=== PATIENT | male | born 2000 | race Caucasian/White ===

== ENCOUNTER → 2023-04-07 15:03 | Outpatient (CLI) | payer SELFPAY ==
--- NOTE | 2023-04-07 15:06 | DI.RAD.S_ITS ---
PROCEDURE: XR ANKLE RT MIN 3V INDICATIONS: right ankle pain TECHNIQUE: 3 views of the ankle were acquired. COMPARISON: None. FINDINGS: Bones: No fractures or dislocations. Ankle mortise is normally aligned. No suspicious bony lesions. Soft tissues: Moderate-sized tibiotalar joint effusion. Achilles tendon appears normal. Lateral periarticular soft tissue swelling. IMPRESSION: 1. No visible fracture. 2. Soft tissue swelling and joint effusion suggests ankle sprain. Dictated by: No Disla M.D. on 04/07/2023 at 16:21 Approved by: No Disla M.D. on 04/07/2023 at 16:22
--- NOTE | 2023-04-07 15:06 | DI.RAD.S_ITS ---
PROCEDURE: XR FINGER RT MIN 2V INDICATIONS: right finger pain TECHNIQUE: AP hand, 2 views of the 3rd and 4th finger(s) acquired. COMPARISON: None. FINDINGS: Bones: No fractures or dislocations. No suspicious bony lesions. Soft tissues: No suspicious soft tissue calcifications. IMPRESSION: No bony abnormality. Dictated by: No Disla M.D. on 04/07/2023 at 16:22 Approved by: No Disla M.D. on 04/07/2023 at 16:22
== END ==
PROVIDERS: Referring Provider Physician Assistant; Visit Provider Physician Assistant
DX: M25.571 Pain in right ankle and joints of right foot (principal); M79.644 Pain in right finger(s); M79.89 Other specified soft tissue disorders
CPT/HCPCS: 73140; 73610